=== PATIENT | female | born 1965 | race Caucasian/White ===

== ENCOUNTER 2020-06-06 23:53 | Emergency (ER) | payer OTHER ==
[2020-06-07 00:07] LABS: HEMOGLOBIN 15.1 gm/dl (12.3-15.3); RED BLOOD COUNT 4.92 M/UL (4.00-5.10); WHITE BLOOD COUNT 8.1 K/UL (4.5-11.0)
== END 2020-06-07 05:20 | disposition home or self-care (01) ==
LOC: ER1 23:53
PROVIDERS: Family Medicine
DX: R07.89 Other chest pain (principal); R10.13 Epigastric pain; F17.200 Nicotine dependence, unspecified, uncomplicated
CPT/HCPCS: 71045; 80053; 82550; 82553; 83690; 83874; 84484; 85025; 85610; 93005; 99285

== ENCOUNTER → 2020-09-08 | Outpatient (CLI) | payer OTHER | LOC: CT 14:39 | DX: R10.9 Unspecified abdominal pain (principal); J43.9 Emphysema, unspecified; K57.92 Diverticulitis of intestine, part unspecified, without perforation or abscess without bleeding | CPT/HCPCS: 71260; Q9967 ==

== ENCOUNTER → 2021-01-31 | Outpatient (CLI) | payer OTHER ==
[~2021-01-31] MED LIST: CYCLOBENZAPRINE5 MG PO; IBUPROFEN600 MG PO
== END ==
LOC: KOH-I 01-30 10:30
DX: R51.9 Headache, unspecified (principal); R06.02 Shortness of breath; J43.9 Emphysema, unspecified
CPT/HCPCS: 70551; 71250

== ENCOUNTER 2021-02-01 16:46 | Emergency (ER) | payer OTHER, MEDICAID ==
[2021-02-01 17:29] LABS: HEMOGLOBIN 14.9 gm/dl (12.3-15.3); RED BLOOD COUNT 4.69 M/UL (4.00-5.10); WHITE BLOOD COUNT 8.6 K/UL (4.5-11.0)
[2021-02-01 18:09] LABS: BUN/CREATININE RATIO 7 (0-10)
[2021-02-01] MEDS ORDERED: CYCLOBENZAPRINE5 MG PO (19:46)
[2021-02-01] MEDS ORDERED: IBUPROFEN600 MG PO (19:46)
== END 2021-02-01 22:00 | disposition home or self-care (01) ==
LOC: ER1 16:46
PROVIDERS: Emergency Medicine
DX: M25.521 Pain in right elbow (principal); R51.9 Headache, unspecified; M54.5 Low back pain; R10.9 Unspecified abdominal pain; I10 Essential (primary) hypertension; F17.200 Nicotine dependence, unspecified, uncomplicated; Z23 Encounter for immunization; V49.40XA Driver injured in collision with unspecified motor vehicles in traffic accident, initial encounter; Y92.410 Unspecified street and highway as the place of occurrence of the external cause
CPT/HCPCS: 70450; 71045; 71260; 72125; 73080; 73630; 80053; 82550; 82553; 83874; 84484; 85025; 90471; 90715; 96374; 99284; J1885; Q9967

== ENCOUNTER → 2021-02-03 | Outpatient (CLI) | payer OTHER | LOC: KOH-I 16:24 | DX: M25.521 Pain in right elbow (principal); M25.421 Effusion, right elbow | CPT/HCPCS: 73080 ==

== ENCOUNTER → 2021-05-08 | Outpatient (CLI) | payer OTHER | LOC: MRI 12:28 | DX: G43.009 Migraine without aura, not intractable, without status migrainosus (principal); G31.9 Degenerative disease of nervous system, unspecified | CPT/HCPCS: 36415; 70553; 82565; A9577 ==

== ENCOUNTER → 2021-10-20 | Outpatient (CLI) | payer MEDICARE ==
[2021-10-20 15:33] LABS: HEMOGLOBIN 15.1 gm/dl (12.3-15.3); RED BLOOD COUNT 4.79 M/UL (4.00-5.10); WHITE BLOOD COUNT 8.4 K/UL (4.5-11.0)
[2021-10-20 16:07] LABS: BUN/CREATININE RATIO 8 (0-10)
== END ==
LOC: LAB 14:30
DX: E55.9 Vitamin D deficiency, unspecified (principal); R53.83 Other fatigue; D51.9 Vitamin B12 deficiency anemia, unspecified; R06.02 Shortness of breath
CPT/HCPCS: 36415; 80053; 82607; 82652; 82746; 84443; 85027

== ENCOUNTER → 2021-10-24 | Outpatient (CLI) | payer MEDICARE | LOC: US 15:17 | DX: R59.0 Localized enlarged lymph nodes (principal) | CPT/HCPCS: 76536 ==

== ENCOUNTER → 2021-11-15 | Outpatient (CLI) | payer MEDICARE, OTHER | LOC: CT 09:00 | DX: D16.5 Benign neoplasm of lower jaw bone (principal) | CPT/HCPCS: 70470; 70492; Q9967 ==

== ENCOUNTER → 2022-01-01 | Outpatient (CLI) | payer MEDICARE, OTHER | LOC: EMI 08:07 | DX: M25.512 Pain in left shoulder (principal); M75.52 Bursitis of left shoulder | CPT/HCPCS: 73221 ==

== ENCOUNTER → 2022-02-12 | Outpatient (CLI) | payer MEDICARE, OTHER | LOC: KOH-I 15:06 | DX: F17.210 Nicotine dependence, cigarettes, uncomplicated (principal) | CPT/HCPCS: 71271 ==